=== PATIENT | female | born 1985 | race Caucasian/White ===

== ENCOUNTER 2020-06-26 13:36 | Outpatient (REF) | payer OTHER, SELFPAY ==
[2020-06-26 13:56] LABS: COVID-19 Test Negative (Negative)
== END 2020-06-26 13:37 | disposition home or self-care (01) ==
LOC: HO.EMPCOV 13:36
PROVIDERS: Visit Provider Internal Medicine
DX: Z20.828 Contact with and (suspected) exposure to other viral communicable diseases (principal)
CPT/HCPCS: 36415; 87635; C9803

== ENCOUNTER 2023-05-02 13:17 | Emergency (ER) | payer OTHER, SELFPAY ==
--- NOTE | ~2023-05-02 | XR_ITS ---
EXAMINATION: LEFT HUMERUS 2 VIEWS LEFT WRIST 4 VIEWS CLINICAL INFORMATION: Fall. Pain. COMPARISON: None. TECHNIQUE: 2 views of the left humerus. 4 views of the left wrist. FINDINGS: Left humerus: No fracture. Limited evaluation of the shoulder and elbow unremarkable. Included left chest clear. Left wrist: Alignment is anatomic. No discrete fracture. Scaphoid view appears normal with no visible scaphoid fracture. No significant degenerative changes. XR/XR wrist LT min 3V IMPRESSION: No fracture.
--- NOTE | ~2023-05-02 | XR_ITS ---
EXAMINATION: LEFT HUMERUS 2 VIEWS LEFT WRIST 4 VIEWS CLINICAL INFORMATION: Fall. Pain. COMPARISON: None. TECHNIQUE: 2 views of the left humerus. 4 views of the left wrist. FINDINGS: Left humerus: No fracture. Limited evaluation of the shoulder and elbow unremarkable. Included left chest clear. Left wrist: Alignment is anatomic. No discrete fracture. Scaphoid view appears normal with no visible scaphoid fracture. No significant degenerative changes. XR/XR humerus LT IMPRESSION: No fracture.
--- NOTE | 2023-05-02 13:20 | ED_ITS ---
HPI - General Adult General Chief complaint: Extremity Injury, Upper Stated complaint: Fall today injury left arm Time Seen by Provider: 05/02/23 14:09 Source: patient Mode of arrival: ambulatory Limitations: no limitations History of Present Illness HPI narrative: patient is a 38-year-old female who presents emergency department for evaluation of traumatic left arm pain. She reports earlier this morning she was trying to pull open a drawer that was wedged closed, pulled really hard and was able to open the door but she subsequently lost her balance falling backwards on top of her dogs and I to the floor. She has pain to the mid proximal left arm with a palpable lump and bruising of. Also endorses pain to the wrist full range of motion. She is left-hand dominant. Denies numbness or tingling to the extremity. Denies pain to the shoulder or neck. She denies any head strike or loss of consciousness from the fall. Related Data Allergies Allergy/AdvReac Type Severity Reaction Status Date / Time No Known Allergies Allergy Verified 05/02/23 13:21 Review of Systems Review of Systems: Yes all other systems are reviewed and are negative FOR[facility], [facility] Past Medical History Attestation statement: The following information was validated with the patient. Source: old records reviewed Social History Social History Advance Directives: No Advance Directives Information Provided: No Physical Exam ED Vital Signs: Vital Signs - 24 hr 05/02/23 13:21 05/02/23 14:42 Temperature 98.1 F 99 F Pulse Rate 125 H 93 Respiratory Rate 18 18 Blood Pressure 148/103 H 130/93 H Pulse Oximetry 97 98 Oxygen Delivery Method Room Air Room Air BMI result Body Mass Index 24.0 Appearance: Alert.?Oriented to person, place and time. No acute distress.?Normal affect. Neck: Normal inspection.? Neck supple.?? CVS: Heart sounds normal. Normal heart rate and rhythm.? Pulses normal.?? Respiratory: No respiratory distress.? Lung sounds clear to auscultation bilaterally?? Abdomen: Soft and non-tender. Normoactive bowel sounds. Skin: Skin warm and dry.? Normal skin color.? Extremities: The left proximal arm with point tenderness, ecchymosis likely evolving hematoma to posterior arm along mid humeral region. full AROM to left wrist. 2+ radial pulse present bilaterally. Neuro: Moves all extremities spontaneously. Sensation intact bilaterally. Ambulates with normal steady gait. Course Course Course Narrative: RME performed by Mary Mills PA-C. Patient is a 38 year old assigned female at presenting to the emergency department with left upper arm pain. Imaging ordered. Patient placed back in the waiting room pending room availability and results. Medications Administered Discontinued Medications Generic Name Dose Route Start Last Admin Trade Name Parisa PRN Reason Stop Dose Admin Ketorolac Tromethamine 30 mg 05/02/23 14:28 05/02/23 14:41 Ketorolac Tromethamine 30 Mg/Ml Vial IM 05/02/23 14:29 30 mg ONCE ONE Administration Medical Decision Making Medical Decision Making MDM Narrative: Patient is a 38-year-old female who presents emergency department for evaluation of atraumatic left arm pain as per HPI. Physical exam findings as per PE section of this note. Overall she is well-appearing, Though she does seem uncomfortable particularly upon palpation. She has full AROM to the left shoulder, elbow, and wrist. The extremity is neurovascularly intact distally. XR imaging obtained of the left wrist and humerus no evidence of fracture dislocation. Symptoms most consistent with hematoma, discussed care for discharge home, conservative treatment, Chepe bandage for compression, acetaminophen/ ibuprofen, outpatient follow-up with primary care provider. Reviewed worrisome signs and symptoms that would warrant re-evaluation in the emergency department. All questions answered. Stable for discharge. Differential Diagnosis Differential Diagnoses: The differential diagnosis associated with the presentation includes ( As noted above) Independent Interpretation I performed an independent interpretation of an: Plain X-Ray ( I personally interpreted x-ray and agree with radiologist impression, no evidence fracture or dislocation) Radiology Impression Discussion of test interpretation with radiology: I have reviewed the radiologist's reading. Radiologist Impression: XR/XR humerus LT IMPRESSION: No fracture. Prescription Management I considered prescription management with: Pain Medication ( acetaminophen/ibuprofen) Discharge Plan Discharge Clinical Impression: Hematoma Patient Disposition: Home, Self-Care Instructions: Bone Bruise (ED) Additional Instructions: X-ray is normal. You can take ibuprofen 200 mg, 3 tablets (600mg) every 6-8 hours as needed for pain, in addition to Tylenol 500 mg, 2 tablets (1,000mg) every 4-6 hours as needed for pain, but not to exceed 3 doses daily (3,000mg).? Referrals: Physician,Unknown J [Primary Care Provider] - Interventions: ED Discharge Assessment Last Done: 05/02/23 15:14 Discharge Date/Time: 05/02/23 15:15
[2023-05-02 13:21] VITALS: BP 148/103; PULSE 125; RESP 18; TEMP 36.7; O2SAT 97; BMI 24.0
[2023-05-02] MEDS: Ketorolac Tromethamine 30 MG/ML VIAL IM (14:41)
[2023-05-02 14:42] VITALS: BP 130/93; PULSE 93; RESP 18; TEMP 37.2; O2SAT 98
--- NOTE | 2023-05-02 15:13 | PC.NURSE ---
Chepe wrap applied to left upper arm where patient has a hematoma, patient tolerated well.
== END 2023-05-02 15:15 | disposition home or self-care (01) ==
PROVIDERS: Emergency Provider Emergency Medicine Emergency Medical Services
DX: S50.12XA Contusion of left forearm, initial encounter (principal); W19.XXXA Unspecified fall, initial encounter; Y93.89 Activity, other specified; Y92.9 Unspecified place or not applicable; Y99.9 Unspecified external cause status
CPT/HCPCS: 73060; 73110; 96372; 99284; J1885

== ENCOUNTER 2024-03-23 13:18 | Emergency (ER) | payer OTHER, SELFPAY ==
--- NOTE | ~2024-03-23 | XR_ITS ---
EXAMINATION: XR ANKLE, RIGHT CLINICAL INFORMATION: Pain, fall. COMPARISON: None available. TECHNIQUE: AP, lateral, and mortise views of the right ankle. FINDINGS: Small osseous fragment adjacent to the medial malleolus. Equivocal minimal cortical irregularity at the base of the fourth metatarsal. Anatomic alignment of the joint spaces. No significant soft tissue abnormality. XR/XR ankle RT min 3V IMPRESSION: 1. Equivocal minimal cortical irregularity at the base of the fourth metatarsal, nondisplaced fracture cannot be excluded. Correlate for point tenderness and if indicated consider further evaluation with a radiograph of the right foot. 2. Small osseous fragment adjacent to the medial malleolus could represent an avulsion injury. Correlate for point tenderness. Electronically signed by: Kathy Wilks MD 03/23/2024 03:39 PM EDT
--- NOTE | ~2024-03-23 | XR_ITS ---
EXAMINATION: XR HIP, RIGHT CLINICAL INFORMATION: Pain, fall. COMPARISON: CT abdomen/pelvis 08/26/2016. TECHNIQUE: Two views of the right hip. FINDINGS: No fracture or malalignment. SI joints are symmetric. Pubic symphysis and pelvic rim are maintained. No significant soft tissue abnormality. XR/XR hip RT w PEL1V IMPRESSION: No acute fracture or malalignment. Electronically signed by: Kathy Wilks MD 03/23/2024 03:40 PM EDT
--- NOTE | ~2024-03-23 | XR_ITS ---
EXAMINATION: XR FOOT, RIGHT CLINICAL INFORMATION: Pain, fall. Subtle abnormality at the base of the fourth metatarsal on prior radiograph of the right ankle. COMPARISON: Radiograph right ankle earlier today. TECHNIQUE: AP, lateral, and oblique views of the right foot. FINDINGS: No acute fracture or malalignment. No significant abnormality at the base of the fourth metatarsal. Mild joint space narrowing and subcortical sclerosis of the first MTP joint. No osseous erosions. No unusual soft tissue calcifications. No significant soft tissue abnormality. XR/XR foot RT min 3V IMPRESSION: 1. No acute fracture or malalignment. 2. 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 Electronically signed by: Kathy Wilks MD 03/23/2024 05:12 PM EDT
--- NOTE | ~2024-03-23 | XR_ITS ---
EXAMINATION: XR KNEE, RIGHT CLINICAL INFORMATION: Knee pain after fall COMPARISON: None available TECHNIQUE: Four views of the right knee. FINDINGS: Small joint effusion is present. There is evidence of a prior surgical ligamentous repair. No acute fractures or dislocations are seen. Joint spaces are well maintained. No chondrocalcinosis. XR/XR knee RT 4V IMPRESSION: Small joint effusion. No evidence of an acute osseous injury. Electronically signed by: Sherman Cui MD 03/23/2024 04:59 PM EDT
[2024-03-23 13:44] VITALS: BP 141/98; PULSE 102; RESP 18; TEMP 36.4; O2SAT 100; BMI 24.1
--- NOTE | 2024-03-23 13:48 | ED_ITS ---
HPI - Extremity Injury (Lower) General Chief Complaint: Extremity Injury, Lower Stated Complaint: r knee inj Time Seen by Provider: 03/23/24 16:42 Source: patient Mode of arrival: ambulatory Limitations: no limitations History of Present Illness ED Provider: GUADALUPE MURRAY PA-C HPI Narrative: 39 year old female, 24 years s/p ACL repair, presents to the ED today for evaluation of right knee and right ankle pain s/p fall off ladder at 0500 this morning. Patient reports standing on a 10ft ladder attempting to turn off the Halloween lights when she lost her balance from approximately half way up, causing her to land wrong on her RLE. Reports immediate knee pain. Denies head strike or LOC. No thinners. Admits to concern given her history of ACL tear to right knee. Did not take any OTC pain meds COPER HAND in ED. Denies numbness/tingling/weakness of the RLE. Related Data Previous Rx's ?Medication ?Instructions ?Recorded oxycodone 5 mg tablet 5 mg PO Q8H PRN pain (scale score 03/23/24 4-6) #9 tabs Allergies Allergy/AdvReac Type Severity Reaction Status Date / Time No Known Allergies Allergy Verified 03/23/24 13:48 Review of Systems Review of Systems: Constitutional: No fever, chills, fatigue, night sweats, weight changes ENT/Mouth: No ear pain, hearing loss, nasal congestion, sinus pain, rhinorrhea, sore throat Eyes: No eye pain, swelling, redness, vision changes, discharge Cardio: No chest pain, palpitations, DICKEY, orthopnea, peripheral edema Pulm: No SOB, cough, sputum, wheezing, dyspnea, hemoptysis GI: No nausea, vomiting, hematemesis, abdominal pain, diarrhea, constipation, hematochezia, melena : No irregular bleeding, dysuria, frequency, urgency, hesitancy, hematuria, flank pain, urinary flow changes, urinary incontinence or retention MSK: No back pain, neck pain, joint pain, myalgias, +right knee pain, +right ankle pain Skin: No lesions, rashes Neuro: No weakness, numbness, paresthesias, LOC, dizziness, headache Psych: No anxiety/panic, depression, SI/HI, AH/VH All other systems reviewed and are negative. COUNT INCLUDES THE [facility] Past Medical History Attestation statement: The following information was validated with the patient. Source: old records reviewed and nursing notes reviewed Social History Social History Advance Directives: No Advance Directives Information Provided: No Do you have a plan to hurt others: No Plan Physical Exam Vital Signs: Vital Signs: Last Vital Signs Temp 97.6 F 03/23/24 13:44 Pulse 102 H 03/23/24 13:44 Resp 18 03/23/24 13:44 BP 141/98 H 03/23/24 13:44 Pulse Ox 100 03/23/24 13:44 O2 Del Method Room Air 03/23/24 13:44 BMI result Body Mass Index 24.1 Patient hypertensive to 141/98, vitals otherwise WNL General: Well appearing, in no acute distress. Skin: Warm, dry, intact. No rashes or lesions. Head: Normocephalic, atraumatic. EENT: Hearing is intact b/l. Conjunctiva clear. PERRLA. Moist mucous membranes.? Neck: Supple without LAD. FROM. Trachea midline.? Cardiac: Chest wall symmetric. RRR. No MRG. No JVD. Lungs: Normal respiratory effort without accessory muscle use. CTA bilaterally. Back: No midline spinous or paraspinal tenderness. No step off deformity. Ext: +noted swelling to right knee with healed vertical scar status post ACL repair. Diffusely tender to palpation without palpable deformity or crepitus. Positive anterior drawer test. No swelling noted to right ankle however she is tender to palpation over medial malleolus without palpable deformity or crepitus. 2+pt/dp pulse intact. ambulating with limping gait. Neuro: AOx3. Normal speech. Psych: Appropriate mood and affect. Responds appropriately to questions. Course Course Course Narrative: This is a Rapid Medical Examination (RME) performed by Boris Galindo PA-C in triage. Full HPI, ROS, assessment and treatment plan per primary provider in the Main ED. 39 yo female with history of right sided ACL reconstruction x2 in the past (@ [facility]) presents to the ER for evaluation of right knee pain after she fell off of a ladder at 530 am today when trying to fix Halloween lights. heard 2 snaps in her right knee. the ladder tipped over and she fell approximately 7ft, landing mostly on the right leg. no head strike. no chest pain, abd pain. reports some right hip and right ankle pain as well but pain mostly in the right knee. Plan: xr knee, hip and ankle Reevaluation(s) Reevaluation #1: 1800 -- x-ray right hip unremarkable. X-ray of right knee showing small joint effusion without evidence of fracture. Given history of ACL repair and laxity on examination, will treat for possible ACL injury and patient will be placed in knee immobilizer. X-ray x-ray right ankle with findings concerning for avulsion fracture of medial malleolus. Patient has point tenderness there. Will place patient in a stirrup splint for stabilization. X-ray of right foot without noted fracture. 1825 -- stirrup splint placed assisted by Sandra LEE. patient tolerated well, NV intact distally. tells me the splint is comfortable. educated on crutch use. provided with referral to ortho. Patient has remained stable throughout ED visit today. Discussed worrisome signs and symptoms and when to return to the ED. All questions answered at this time. Patient is agreeable with disposition and stable for discharge. Medications Administered Discontinued Medications Generic Name Dose Route Start Last Admin Trade Name Freq PRN Reason Stop Dose Admin Oxycodone HCl 5 mg 03/23/24 17:20 03/23/24 17:55 Oxycodone Hcl Immed Release 5 Mg Tablet PO 03/23/24 17:21 5 mg ONCE ONE Administration Medical Decision Making Medical Decision Making MDM Narrative: 39 year old female, 24 years s/p ACL repair, presents to the ED today for evaluation of right knee and right ankle pain s/p fall off ladder at 0500 this morning. Patient hypertensive and tachy likely secondary to pain/discomfort. She is nontoxic-appearing and in no acute distress. Sitting in wheelchair. On my exam, noted swelling to right knee with healed vertical scar status post ACL repair. Diffusely tender to palpation without palpable deformity or crepitus. Positive anterior drawer test. No swelling noted to right ankle however she is tender to palpation over medial malleolus without palpable deformity or crepitus. 2+pt/dp pulse intact. ambulating with limping gait. Differential diagnosis includes contusion, MSK sprain/strain, fracture, dislocation. Unlikely neurovascular compromise, threat to limb, compartment syndrome. Plan for xrs, pain control, and re-evaluation. Differential Diagnosis Differential Diagnoses: The differential diagnosis associated with the presentation includes as above. Admission/Observation not indicated Independent Interpretation I performed an independent interpretation of an: Plain X-Ray Interpretation: X-ray hip without acute fracture, agree with radiologist's interpretation. X-ray right foot without acute fracture, agree with radiologist's i nterpretation. X-ray right ankle with question avulsion fracture of medial malleolus, agree with radiologist's interpretation. X-ray right knee with small joint effusion, no fracture, agree with rad iologist's interpretation. Radiology Impression Discussion of test interpretation with radiology: I have reviewed the radiologist's reading. Radiologist Impression: EXAMINATION: XR FOOT, RIGHT CLINICAL INFORMATION: Pain, fall. Subtle abnormality at the base of the fourth metatarsal on prior radiograph of the right ankle. COMPARISON: Radiograph right ankle earlier today. TECHNIQUE: AP, lateral, and oblique views of the right foot. FINDINGS: No acute fracture or malalignment. No significant abnormality at the base of the fourth metatarsal. Mild joint space narrowing and subcortical sclerosis of the first MTP joint. No osseous erosions. No unusual soft tissue calcifications. No significant soft tissue abnormality. XR/XR foot RT min 3V IMPRESSION: 1. No acute fracture or malalignment. 2. 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 Electronically signed by: Kathy Wilks MD 03/23/2024 05:12 PM EDT EXAMINATION: XR ANKLE, RIGHT CLINICAL INFORMATION: Pain, fall. COMPARISON: None available. TECHNIQUE: AP, lateral, and mortise views of the right ankle. FINDINGS: Small osseous fragment adjacent to the medial malleolus. Equivocal minimal cortical irregularity at the base of the fourth metatarsal. Anatomic alignment of the joint spaces. No significant soft tissue abnormality. XR/XR ankle RT min 3V IMPRESSION: 1. Equivocal minimal cortical irregularity at the base of the fourth metatarsal, nondisplaced fracture cannot be excluded. Correlate for point tenderness and if indicated consider further evaluation with a radiograph of the right foot. 2. Small osseous fragment adjacent to the medial malleolus could represent an avulsion injury. Correlate for point tenderness. Electronically signed by: Kathy Wilks MD 03/23/2024 03:39 PM EDT RP EXAMINATION: XR KNEE, RIGHT CLINICAL INFORMATION: Knee pain after fall COMPARISON: None available TECHNIQUE: Four views of the right knee. FINDINGS: Small joint effusion is present. There is evidence of a prior surgical ligamentous repair. No acute fractures or dislocations are seen. Joint spaces are well maintained. No chondrocalcinosis. XR/XR knee RT 4V IMPRESSION: Small joint effusion. No evidence of an acute osseous injury. Electronically signed by: Sherman Cui MD 03/23/2024 04:59 PM EDT RP EXAMINATION: XR HIP, RIGHT CLINICAL INFORMATION: Pain, fall. COMPARISON: CT abdomen/pelvis 08/26/2016. TECHNIQUE: Two views of the right hip. FINDINGS: No fracture or malalignment. SI joints are symmetric. Pubic symphysis and pelvic rim are maintained. No significant soft tissue abnormality. XR/XR hip RT w PEL1V IMPRESSION: No acute fracture or malalignment. Electronically signed by: Kathy Wilks MD 03/23/2024 03:40 PM EDT RP External Record Review External record reviewed: Inpatient record Prescription Management I considered prescription management with: Pain Medication (Oxycodone) Social Determinants Patient?s care significantly limited by Social Determinants of Health including: Other Social Determinant of Health Procedures Orthopedic Splinting/Casting Injury #1: Side: right Lower Extremity Injury Location: ankle Lower Extremity Immobilizer: stirrup splint Other Orthopedic Equipment: crutches Injury #2: Side: left Lower Extremity Injury Location: knee Lower Extremity Immobilizer: knee immobilizer Other Orthopedic Equipment: crutches Critical Care Time Critical Care Time Critical Care Time: No Discharge Plan Discharge Clinical Impression: Avulsion fracture of medial malleolus, Accidental fall from ladder, Right knee sprain Patient Disposition: Home, Self-Care Instructions: Ankle Fracture (ED), Knee Sprain (ED), Crutch Instructions (ED), Knee Immobilizer (ED) Additional Instructions: You have been evaluated in the Emergency Department today following fall off ladder. Your evaluation showed a fracture of your ankle. I have placed your ankle in a splint today. Avoid getting the splint wet. Please rest, ice, and elevate your ankle. As discussed, although the xray of your right knee did not show fracture, you likely have a ligament vs tendon injury which needs to be further evaluated by ortho. You were placed in a knee immobilizer to help with immobilization. Keep this on until follow up with ortho. You may remove it to shower/ bathe. We have provided crutches for you to use while your ankle and knee heel. I recommend you take 600mg ibuprofen every 6 hours or tylenol 650mg every 6 hours as needed for pain. If needed, you can alternate these medications so that you take one medication every 3 hours. For example, at noon take ibuprofen, then at 3pm take tylenol, then at 6pm take ibuprofen.? Please take Oxycodone as directed as necessary for breakthrough pain. Please follow-up with an orthopedic surgeon in 1 week. You have been provided with a referral. Call them to make an appointment, they will not call you. Return to the Emergency Department if you experience worsening pain, numbness, tingling, change of color in your toes, or any other concerning symptoms. Prescriptions: New oxycodone 5 mg tablet 5 mg PO Q8H PRN (Reason: pain (scale score 4-6)) Qty: 9 0RF Rx Instructions: Partial Fill upon patient request. Referrals: [facility] [place] Orthopedic Surgeons [Provider Group] Print Language: Luxembourgish
[2024-03-23] MEDS: oxyCODONE HCl Immed Release 5 MG TABLET PO (17:55)
[2024-03-23 19:02] VITALS: BP 141/98; PULSE 102; RESP 18; TEMP 36.4; O2SAT 100
== END 2024-03-23 19:03 | disposition home or self-care (01) ==
PROVIDERS: Emergency Provider Emergency Medicine
DX: S82.51XA Displaced fracture of medial malleolus of right tibia, initial encounter for closed fracture (principal); S83.91XA Sprain of unspecified site of right knee, initial encounter; M25.571 Pain in right ankle and joints of right foot; R10.2 Pelvic and perineal pain; M25.551 Pain in right hip; W11.XXXA Fall on and from ladder, initial encounter; Y93.89 Activity, other specified; Y92.89 Other specified places as the place of occurrence of the external cause; Y99.8 Other external cause status
CPT/HCPCS: 73502; 73564; 73610; 73630; 99283

== ENCOUNTER 2024-07-27 13:18 | Outpatient (AMB) | payer OTHER, SELFPAY ==
--- OUTSIDE RECORDS SUMMARY | 2024-07-27 13:23 | XMS_ITS | Referral Summary ---
Author Organization [facility] Address [address] [place] [address] Care Team Providers Care Corporate Compliance Manager Name Role Phone Patient, Has No Pcp Or Ref Primary Care Provider Unavailable Social History Tobacco Use Types Packs/Day Years Used Date Smoking Tobacco: Never Assessed Comments Unknown Sex and Gender Information Value Date Recorded Sex Assigned at Female 04/06/2024 4:59 PM EDT Legal Sex Female 4:26 AM EDT Gender Identity Not on file Sexual Orientation Not on file Plan of Treatment Not on file Insurance [employer] Care Teams Corporate Compliance Manager Relationship Specialty Start Date End Date Patient, Has No Pcp Or Ref DO NOT EDIT THIS RECORD VIA PROVIDER ON THE FLY PCP - General Business Management Intern 04/06/24
--- OUTSIDE RECORDS SUMMARY | 2024-07-27 13:23 | XMS_ITS | Clinical Summary ---
Author Organization [facility] Address [address] [place] [address] Care Team Providers Care Cleaning And Maintenance Worker Name Role Phone Patient, Has No Pcp Or Ref Primary Care Provider Unavailable Social History Tobacco Use Types Packs/Day Years Used Date Smoking Tobacco: Never Assessed Comments Unknown Sex and Gender Information Value Date Recorded Sex Assigned at Female 04/06/2024 4:59 PM EDT Legal Sex Female 4:26 AM EDT Gender Identity Not on file Sexual Orientation Not on file Plan of Treatment Health Maintenance Due Date Last Done Comments Cervical Cancer Screening 1983 HIV Screening 1983 HPV and Pap Smear 1983 Pap Smear 1983 Varicella Vaccines (1 of 2 - 13+ 2-dose series) 02/23/1996 Hepatitis B Vaccines (1 of 3 - 19+ 3-dose series) 2002 DTaP,Tdap,and Td Vaccines (1 - Tdap) 2005 Mammogram 2023 COVID-19 Vaccine ( - 2023-2 5 season) 2024 Influenza Vaccine (#1) 2024 Alcohol/Substance Use Screening 06/21/2024 RSV Vaccine (60+ years old a nd patients) (1 - 1-dose 75+ series) 2058 Pneumococcal Vaccine: Pediat winsome (0-5 Years) and At-Risk Patients (6-64 Years) Aged Out No longer eligible b ased on patient's age to complete this topic Insurance [employer] Care Teams Cleaning And Maintenance Worker Relationship Specialty Start Date End Date Patient, Has No Pcp Or Ref DO NOT EDIT THIS RECORD VIA PROVIDER ON THE FLY PCP - General Senior Business Process Analyst 04/06/24
--- NOTE | 2024-07-27 13:27 | A.OFFVIS_ITS ---
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 Patient presented to [facility] after falling off a ladder at home. Patient has a known history of right ACL repair, DOS:01/2000. 2 years later had surgery again for removal of hardware. 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 She states she was on a ladder and it was about to fall when she jumped from the ladder and as she landed on her feet the right knee buckled and she felt it give way and fell. She was seen at another orthopedic practice where an MRI was ordered and she was found to have a re-tear of her ACL along with an MCL sprain and a meniscus tear. She was tentatively booked for surgery which later got canceled. She is an employee of [employer] and presented to our office for ortho eval right knee. She states she is significantly active and this injury is limiting her ability to perform daily activities and also activities that require impact or jumping/cutting twisting or pivoting. [facility] Surgical History (Updated 07/27/24 @ 14:32 by Kermit Garcia PA-C) S/P reconstruction of ACL of right knee using bone-patellar tendon-bone autograft Social History (Updated 07/27/24 @ 14:32 by Kermit Garcia PA-C) Current occupation: [employer] Review of Systems Const All systems reviewed & are unremarkable except as noted in HPI and below Physical Exam Const General: cooperative and no acute distress Orientation/consciousness: patient oriented x3 Resp Effort & Inspection: normal respiratory effort and able to speak in complete sentences Cardio Peripheral pulses: Peripheral pulses 2+ throughout Neuro General: patient oriented x3 Extrem Other: Right knee normal to inspection surgical scar present no open wounds or abrasions no joint effusion present she has full range of motion. Tenderness along the medial joint line with a positive Bautista's. Significant ligamentous laxity with anterior drawer testing when compared to contralateral side. Neurovascularly intact. Results Reviewed Results Reviewed: XR knee RT 4V IMPRESSION: Small joint effusion. No evidence of an acute osseous injury. Assessment & Plan Assessment & Plan (1) New tear of anterior cruciate ligament of right knee: Code(s): S83.511A - Sprain of anterior cruciate ligament of right knee, initial encounter Category: Medical Plan: Dr. Salas was available to see the patient with me today. We discussed the injury at length along with treatment options which include ACL reconstruction with allograft versus autograft. We discussed at length the benefits of allograft versus autograft given her age and activity level. Since she continues to have significant limitations with activities and would like to get back to normal function we did decide to proceed with revision ACL reconstruction right knee with allograft. A stat MRI will be ordered of the right knee to further assess the nature of the ACL and surrounding structures. We discussed the risks benefits and alternatives to the procedure. Risks including but not limited to infection, blood clots, nerve tissue damage to surrounding area, injury to bone, retear of ACL graft, stiffness and pain. She does understand all this and would like to proceed with revision right knee ACL reconstruction with allograft with Dr. Salas. She was fit for a hinged knee brace in the office today. Orders: Orders MR knee RT wo con Today S83.511A - Sprain of anterior cruciate ligament of right knee, initial encounter Coding Level of Care Code New Pt Level 4 (92914) Complex EM visit Add On G2211 Diagnoses New tear of anterior cruciate ligament of right knee S83.511A
== END 2024-07-27 14:39 | disposition home or self-care (01) ==
PROVIDERS: Visit Provider Physician Assistant
DX: S83.511A Sprain of anterior cruciate ligament of right knee, initial encounter (principal)
CPT/HCPCS: 99204

== ENCOUNTER 2024-07-31 19:55 | Outpatient (REF) | payer OTHER, SELFPAY | END 2024-07-31 19:56 | disposition home or self-care (01) | LOC: HO.MRI 19:55 | PROVIDERS: Visit Provider Physician Assistant | DX: S83.511A Sprain of anterior cruciate ligament of right knee, initial encounter (principal) | CPT/HCPCS: 73721 ==

== ENCOUNTER → 2024-07-31 20:04 | Outpatient (BNV) | payer OTHER, SELFPAY | PROVIDERS: Visit Provider Radiology Diagnostic Radiology | DX: S83.511A Sprain of anterior cruciate ligament of right knee, initial encounter (principal) | CPT/HCPCS: 73721 ==

== ENCOUNTER 2024-08-02 12:34 | Day surgery (SDC) | payer OTHER, SELFPAY ==
--- NOTE | 2024-08-01 12:10 | P.CONAN_ITS ---
Documented by User: Lena Almendarez NP 08/01/24 12:10 HPI - Anesthesia Eval Consult details Narrative: 39yo F for Right ACL Repair Arthroscopic Revision with Allograft PMFSH Active Problems Active Problems: All Active Problems New tear of anterior cruciate ligament of right knee (Acute) Surgical History Surgical History S/P reconstruction of ACL of right knee using bone-patellar tendon-bone autograft Social History Social History Are you a primary personal care worker to a significant other at home: No Do you presently have visiting nurse or other home services: No Patient Tobacco Use Status: Current everyday Tobacco user Tobacco use type: Cigarette Cigarettes Per Day: 5 Use of substances other than those prescribed or required for medical reasons: No Have you been hit, kicked, punched, or otherwise hurt by someone within the past year? If so, by whom?: No Are you DNR?: No Advance Directives: No Advance Directives Information Provided: Yes Recently lost weight without trying: No Nutrition Risks: No Nutritional Risk Patient : No FDLMP: 07/08/2024 Current occupation: [employer] Allergies Allergy/AdvReac Type Severity Reaction Status Date / Time No Known Allergies Allergy Verified 07/27/24 13:35 Assessment and Plan Assessment Anesthesia Assessment: Chart Reviewed Documented by User: Maria M Mondragon MD 08/02/24 13:22 PMFSH Family History Family history of problems with anesthesia: No Surgical History Surgical History S/P reconstruction of ACL of right knee using bone-patellar tendon-bone autograft History of Problems with Anesthesia: No Social History Social History Are you a primary personal care worker to a significant other at home: No Do you presently have visiting nurse or other home services: No Patient Tobacco Use Status: Current everyday Tobacco user Tobacco use type: Cigarette Cigarettes Per Day: 5 Use of substances other than those prescribed or required for medical reasons: No Have you been hit, kicked, punched, or otherwise hurt by someone within the past year? If so, by whom?: No Are you DNR?: No Advance Directives: No Advance Directives Information Provided: Yes Recently lost weight without trying: No Nutrition Risks: No Nutritional Risk Patient : No FDLMP: 07/08/2024 Current occupation: [employer] Allergies Allergy/AdvReac Type Severity Reaction Status Date / Time No Known Allergies Allergy Verified 07/27/24 13:35 Exam Airway Mallampati Class: II TM Dist: >3cm Neck ROM: Full Heart: rrr Lungs: cta Assessment and Plan Assessment Anesthesia Assessment: Anesthesia Plan Discussed Final Anesthetic Review Family History of Problems with Anesthesia: No History of Problems with Anesthesia: No NPO: Yes ASA Class: II (smoker) Final Preanesthetic Review: No Changes in Pt Med Stat, Meds/Allgs Chart Reviewed, Consent Obtained/Reviewed and Anes Risks/Benef Reviewed Patient Risk: Low Procedure Risk: Intermediate Anesthetic Plan Anesthetic Plan: GA and Regional Block Disposition: Standard PACU
[2024-08-02] VITALS (7 sets, daily range): BP systolic 117–133; BP diastolic 70–95; PULSE 82–97; RESP 14–18; TEMP 36.5–36.8; O2SAT 99–100; BMI 24.0
[2024-08-02 13:19] LABS: UPreg QC Valid YES; Urine Pregnancy NEGATIVE (NEGATIVE)
[2024-08-02] MEDS: Lactated Ringers 1,000 ML 100 ML IVCONT (13:31)
--- NOTE | 2024-08-02 13:36 | HO.ANESPROP2 ---
[facility] Active Problems Active Problems: All Active Problems (Updated 07/27/24 @ 14:20 by Kermit Garcia PA-C) New tear of anterior cruciate ligament of right knee (Acute) Family History Family history of problems with anesthesia: No Surgical History Surgical History S/P reconstruction of ACL of right knee using bone-patellar tendon-bone autograft History of Problems with Anesthesia: No Social History Social History Are you a primary home health care social worker to a significant other at home: No Do you presently have visiting nurse or other home services: No Patient Tobacco Use Status: Current everyday Tobacco user Tobacco use type: Cigarette Cigarettes Per Day: 5 Use of substances other than those prescribed or required for medical reasons: No Have you been hit, kicked, punched, or otherwise hurt by someone within the past year? If so, by whom?: No Are you DNR?: No Advance Directives: No Advance Directives Information Provided: Yes Recently lost weight without trying: No Nutrition Risks: No Nutritional Risk Patient : No FDLMP: 07/08/2024 Current occupation: [employer] Allergies Allergy/AdvReac Type Severity Reaction Status Date / Time No Known Allergies Allergy Verified 07/27/24 13:35 Active Medications: Current Medications Fentanyl (Fentanyl Citrate/Pf 100 Mcg/2 Ml Vial) 25 mcg IVPUSH Q5M PRN PRN Reason: Pain, Moderate to Severe (Pain Scale 4-10) Stop: 08/02/24 19:22 Lactated Ringer's (Lr) 1,000 mls @ 100 mls/hr IVCONT .Q10H SAVANNAH Last Admin: 08/02/24 13:31 Dose: 100 mls/hr Naloxone HCl (Naloxone Hcl 0.4 Mg/Ml Vial) 0.04 mg IVPUSH Q5M PRN PRN Reason: Excessive sedation or RR < 8 Ondansetron HCl (Ondansetron Hcl 4 Mg/2 Ml Vial) 4 mg IVPUSH ONCE PRN PRN Reason: Nausea and Vomiting Stop: 08/02/24 19:22 Exam Height,Weight and Vital Signs: Height 5 ft 4 in Weight 63.503 kg Last Vital Signs Temp 98.3 F 08/02/24 13:16 Pulse 97 08/02/24 13:16 Resp 14 08/02/24 13:16 BP 133/95 H 08/02/24 13:16 Pulse Ox 99 08/02/24 13:16 O2 Del Method Room Air, Mechanical Ventilation 08/02/24 13:16 Pertinent Lab Results Pertinent Lab Results: Laboratory Tests 08/02/24 12:40 Urine Test NEGATIVE Airway Mallampati Class: II TM Dist: >3cm Neck ROM: Full Assessment and Plan Assessment Anesthesia Assessment: Anesthesia Plan Discussed and Chart Reviewed Final Anesthetic Review Family History of Problems with Anesthesia: No History of Problems with Anesthesia: No NPO: Yes ASA Class: II Final Preanesthetic Review: No Changes in Pt Med Stat, Meds/Allgs Chart Reviewed, Consent Obtained/Reviewed, Anes Risks/Benef Reviewed and DNR Form (If Appl.) Patient Risk: Low Procedure Risk: Low Anesthetic Plan Anesthetic Plan: GA Disposition: Standard PACU
--- OUTSIDE RECORDS SUMMARY | 2024-08-02 14:01 | XMS_ITS | Clinical Summary ---
Author Organization [facility] Address [address] [place] [address] Care Team Providers Care Dandy Tender Name Role Phone Patient, Has No Pcp [...] complete this topic Insurance [employer] [place] [employer] Care Teams Dandy Tender Relationship Specialty Start Date End Date Patient, Has No Pcp Or Ref DO NOT EDIT THIS RECORD VIA PROVIDER ON THE FLY PCP - General Cooking Chef 04/06/24
--- OUTSIDE RECORDS SUMMARY | 2024-08-02 14:01 | XMS_ITS | Referral Summary ---
Author Organization [facility] Address [address] [place] [address] Care Team Providers Care Platform Beater Name Role Phone Patient, Has No Pcp [...] Plan of Treatment Not on file Insurance [employer] ADMINISTRATORS Care Teams Platform Beater Relationship Specialty Start Date End Date Patient, Has No Pcp Or Ref DO NOT EDIT THIS RECORD VIA PROVIDER ON THE FLY PCP - General Licensed And Certified Midwife 04/06/24
--- NOTE | 2024-08-02 14:41 | MHC.SHP ---
Pre-Procedural Eval Section A - 24 Hr Update-Section A only Date of Service: 08/02/24 The patient is an INPATIENT: No Changes since office visit: No Cold of Flu in the past 2 weeks, No New Medical Problems, No Changes in Medication and No Patient answered all questions The patient has been examined within 24 hours of the surgical procedure. The History & Physical has been completed within 30 days and I have reviewed it.: Yes Section B - Complete if H&P > 30 days Chief Complaint: Sprain of anterior cruciate ligament of right knee Allergies: Allergies Allergy/AdvReac Type Severity Reaction Status Date / Time No Known Allergies Allergy Verified 07/27/24 13:35 Plan I have reviewed the history and physical and performed a pertinent physical examination on my patient. No changes have occurred unless specified. Time Spent With Patient Time: Total time managing care of this patient today ____ minutes.
--- NOTE | 2024-08-02 16:51 | P.BOP_ITS ---
Brief Operative Note Date of Service: 08/02/24 Pre-op diagnosis: Right ACL tear and MMT Post-op diagnosis: other (1) Right ACL tear 2) RIght MMT 3) Right lateral root tear) Procedure: Right ACL reconstruction with allograft Right Medial meniscus tear RIght Lateral root repair Implants: Mcfarland and Nephew ACL endobutton and 11x 25 IF screw Footprint mini x 1 RTI Anterior tibialis allograft Surgeon: Abhishek Salas MD Anesthesia: GLMA and regional Was an Knife Machine Operator used for this Procedure?: Yes Knife Machine Operator: Mandy Foster Estimated blood loss (mL): 25 Tourniquet time (min): 90 IV fluids (mL): 1,200 Pathology: none sent Condition: stable Disposition: PACU
--- NOTE | 2024-08-07 08:00 | P.OP_ITS ---
Operative Note Operative Note Date of Service: 08/02/24 Narrative: Date of Service: 08/02/24 Pre-op diagnosis: Right ACL tear and MMT Post-op diagnosis: other (1) Right ACL tear 2) RIght MMT 3) Right lateral root tear) Procedure: Right ACL reconstruction with allograft Right Medial meniscus tear RIght Lateral root repair Implants: Mcfarland and Nephew ACL endobutton and 11x 25 IF screw Footprint mini x 1 RTI Anterior tibialis allograft Surgeon: Abhishek Salas MD Anesthesia: GLMA and regional Was an Temporary Data Entry Clerk used for this Procedure?: Yes Temporary Data Entry Clerk: Mandy Foster Estimated blood loss (mL): 25 Tourniquet time (min): 90 IV fluids (mL): 1,200 Pathology: none sent Condition: stable Disposition: PACU Procedure in detail: Patient was brought to the operating room placed supine on the arthroscopic table and prepped and draped in standard sterile fashion. A time-out was called to identify proper site proper procedure proper surgeon and IV antibiotics per weight were administered. Under anesthesia she had a grossly + pivot shift. I began by exsanguinating the limb and insufflating tourniquet to 300 mm Hg. Then made a standard anterolateral stab incision. The knee was insufflated with water and 30 degree arthroscope was placed. There was grade 0 fibrillations of the patella and overall suprapatellar pouch and the gutters were clean. I descended into the medial compartment where I made my far medial portal under direct visualization. There was an unstable bucket handle medial meniscus tear in the red/white zone. The root was intact and there were no cartilage changes of the MFC or medial tibial plateau. I debrided the posterior tibial plateau./ posterior horn capsular attachment sign an arthroscopic rasp. I used two Fast Pass meniscal cinches (Mcfarland and Nephew) to repair the tear through the AM portal. I was satisfied with the extent of repair. The meniscus was stable to probing. I then examined the notch where there was a + empty wall sign and an intact PCL. The stump of the ACL was prominent. I debrided the stump and acl footprint and performed a limited notchplasty. I then examined the lateral meniscus and there was a complete lateral root tear. The lateral meniscal root has scarrred to the PCL. I then palced the knee in a figure-4 position and used an arthroscopic currette to debrided the attachment site. I did not take down the scarred portion. I placed two looped fiber tape through the root and then, at a 65 deg angle ( to avoid tunnel crossover) i drilled my cannulated drill through the lateral root insertion site from the anteromedial tibial plateau. The pin was directly visualized as it penetrated the joint. I placed a nitinol wire and brought the free ends of the looped suture down through the tibia. I did not tighten yet but rather returned to the ACL reconstruction. Of note there were G2 changes of the LFC, liekly from prior surgery. I then, through a far AM portal and a 7mm behind the back guide, drilled a k-wire through the LFC with the knee in hyper-flexion. I measured the tunnel as a 26 and then after sizing the allograft on the back table (9.5) drilled a 20mm tunnel with a 10 mm reamer. The final 6 mm was drilled with a 4.5 reamer. I then pulled a suture through the femoral tunnel and turned my attention to the tibia. I did examine the femoral tunnel and was satisfied with the posterior wall and its location low and medial at the anatomic footprint. I visualized the femoral tunnel and there was bone on all sides with no evidence of prior surgery or any tunnel abnormalities. I placed my tibial drill guide in 55 deg and, through a anteromedial inc just lateral to the tibial tubercle placed a k-wire into the notch exiting just medial to the anterior horn insertion of the lateral meniscus. I then over- reamed with a 10mm reamer. I cleaned the tunnels up with a shaver. Again the tunnel was examined and there was bone on all sides with no irregularities or widening. On the back table I whip-stitched the allograft to fit through a 9.5/10 aperture and attached the femoral button to the looped end. I placed the graft on 15lbs of tension for 15 minutes. I then passed the allograft through the tibial tunnel and femoral tunnel and flipped the button. I cycled the knee about 10-15 cycles and then placed a tibial interference screw (11x24) with the knee in hyper-extension while holding the graft taught. Once I was satisfied that the interference screw was buried I examined the ACL and the medial meniscus repair. The repair was stable and the ACL was not impinging and there was a negative pivot shift. I then placed the knee in figure of 4 and tightened the suture exiting the tibia. There was excellent compression of the root to the insertion. I tightened this is 45 deg of flexion and placed a single Mcfarland and Nephew Footprint through the anteromedial tibia distal to the ACL interference screw. Once this was placed I examined the lateral root repair, the medial meniscus repair and the ACL. I was satisfied that they were all stable and all hardware intact. I then removed all instrumentation and closed the incisions with nylon. Patient was then placed in sterile dressings and a hinged knee brace. She was then extubated brought recovery room stable condition. There were no known complications. ACL/root PT protocol.
== END 2024-08-02 17:47 | disposition home or self-care (01) ==
LOC: HO.SSS 12:34
PROVIDERS: Nurse Practitioner; Visit Provider Orthopaedic Surgery
PROC: (CPT 29888; principal; 2024-08-02 15:30)
DX: S83.511A Sprain of anterior cruciate ligament of right knee, initial encounter (principal); S83.211A Bucket-handle tear of medial meniscus, current injury, right knee, initial encounter; S83.281A Other tear of lateral meniscus, current injury, right knee, initial encounter; W11.XXXA Fall on and from ladder, initial encounter; Y93.9 Activity, unspecified; Y92.9 Unspecified place or not applicable; Y99.9 Unspecified external cause status; Z98.890 Other specified postprocedural states
CPT/HCPCS: 29888; 29883; 81025; C1713; C1762; J0131; J0171; J0665; J0690; J1100; J1885; J2003; J2250; J2405; J2704; J3010

== ENCOUNTER → 2024-08-02 12:34 | Outpatient (BNV) | payer OTHER, SELFPAY | PROVIDERS: Visit Provider Orthopaedic Surgery | DX: S83.211A Bucket-handle tear of medial meniscus, current injury, right knee, initial encounter (principal); S83.281A Other tear of lateral meniscus, current injury, right knee, initial encounter; S83.511A Sprain of anterior cruciate ligament of right knee, initial encounter | CPT/HCPCS: 29881; 29882; 29888 ==

== ENCOUNTER 2024-08-10 10:39 | Outpatient (REF) | payer OTHER, SELFPAY ==
--- OUTSIDE RECORDS SUMMARY | 2024-08-11 11:42 | XMS_ITS | Referral Summary ---
Author Organization [facility] Address [address] [place] [address] Care Team Providers Care Oracle Dba Name Role Phone Patient, Has No Pcp [...] Plan of Treatment Not on file Insurance [employer] ADMINISTRATORS Care Teams Oracle Dba Relationship Specialty Start Date End Date Patient, Has No Pcp Or Ref DO NOT EDIT THIS RECORD VIA PROVIDER ON THE FLY PCP - General Concreter 04/06/24
--- OUTSIDE RECORDS SUMMARY | 2024-08-11 11:42 | XMS_ITS | Clinical Summary ---
Author Organization [facility] Address [address] [place] [address] Care Team Providers Care Rendering Equipment Tender Name Role Phone Patient, Has No [...] Pediat winsome (0-5 Years) and At-Risk Patients (6-50 Years) Aged Out No longer eligible b ased on patient's age to complete this topic Insurance [employer] [place] [employer] Care Teams Rendering Equipment Tender Relationship Specialty Start Date End Date Patient, Has No Pcp Or Ref DO NOT EDIT THIS RECORD VIA PROVIDER ON THE FLY PCP - General Yarn Washer 04/06/24
== END 2024-08-10 10:40 | disposition home or self-care (01) ==
LOC: HO.HOSX 10:39
PROVIDERS: Visit Provider Physician Assistant
DX: Z13.89 Encounter for screening for other disorder (principal)

== ENCOUNTER 2024-08-14 08:14 | Outpatient (REF) | payer OTHER, SELFPAY ==
--- OUTSIDE RECORDS SUMMARY | 2024-08-14 11:39 | XMS_ITS | Clinical Summary ---
Author Organization [facility] Address [address] [place] [address] Care Team Providers Care Boat Laborer Name Role Phone Patient, Has No Pcp [...] DTaP,Tdap,and Td Vaccines (1 - Tdap) 2005 COVID-19 Vaccine ( - 2023-2 5 season) 2024 Influenza Vaccine (#1) 2024 Alcohol/Substance Use Screening 06/21/2024 RSV Vaccine (60+ years old a nd patients) (1 - 1-dose 75+ series) 2058 Pneumococcal Vaccine: Pediat winsome (0-5 Years) and At-Risk Patients (6-50 Years) Aged Out No longer eligible b ased on patient's age to complete this topic Insurance [employer] Care Teams Boat Laborer Relationship Specialty Start Date End Date Patient, Has No Pcp Or Ref DO NOT EDIT THIS RECORD VIA PROVIDER ON THE FLY PCP - General Water Mangle Tender 04/06/24
--- OUTSIDE RECORDS SUMMARY | 2024-08-14 11:39 | XMS_ITS | Referral Summary ---
Author Organization [facility] Address [address] [place] [address] Care Team Providers Care Swine Extension Field Specialist Name Role Phone Patient, Has No Pcp [...] Plan of Treatment Not on file Insurance Screen ADMINISTRATORS Screen ADMINISTRATORS Care Teams Swine Extension Field Specialist Relationship Specialty Start Date End Date Patient, Has No Pcp Or Ref DO NOT EDIT THIS RECORD VIA PROVIDER ON THE FLY PCP - General Airplane Refueler 04/06/24
== END 2024-08-14 08:15 | disposition home or self-care (01) ==
LOC: HO.HOSX 08:14
PROVIDERS: Visit Provider Physician Assistant
DX: Z13.89 Encounter for screening for other disorder (principal)

== ENCOUNTER 2024-08-14 14:14 | Outpatient (AMB) | payer OTHER, SELFPAY ==
--- NOTE | 2024-08-14 14:22 | MHC.OFFVIS ---
Intake Visit Reasons: PO RT knee ACL repair 08/02/24 NE Intake Note: Flora is a 39 year old female who presents today for a post op appointment s/p right knee ACL repair 08/02/24 NE. Patient reports she is feeling very sore around the incision site. Allergies No Known Allergies Allergy (Verified 08/14/24 14:30) HPI HPI PO RT knee ACL repair 08/02/24 NE: Details: Ms. Alamo is a 39-year-old female who presents to the office today for her 1st postop status post right knee ACL reconstruction with meniscal root repair performed on 08/02/[address] Salas. She has had difficulty using the crutches and is concerned for falling. Additionally, she is using a cryocuff for ice therapy. Unfortunately, the patient did become ill with the flu and missed her 1st physical therapy appointment and did have to reschedule her 1st postop appointment. However, this has not impacted her recovery at this time and she is overall doing very well. [facility] Surgical History S/P reconstruction of ACL of right knee using bone-patellar tendon-bone autograft Social History Are you a primary field care coordinator to a significant other at home: No Do you presently have visiting nurse or other home services: No Patient Tobacco Use Status: Current everyday Tobacco user Tobacco use type: Cigarette Cigarettes Per Day: 5 Current occupation: [employer] Review of Systems Const All systems reviewed & are unremarkable except as noted in HPI and below Physical Exam Const General: cooperative, healthy appearing and no acute distress Resp Effort & Inspection: normal respiratory effort and able to speak in complete sentences Cardio Rate: regular rate Peripheral pulses: Peripheral pulses 2+ throughout Skin Lesions: no lesions Rashes: no rashes Extrem Other: Right knee incision sites are clean dry and intact. Sutures intact. There is diffuse ecchymosis. No surrounding erythema or drainage. No signs of infection. Able to dorsiflex plantar flex. NVI. Assessment & Plan Assessment & Plan (1) S/P repair of lateral meniscus root tear of right knee: Code(s): Z98.890 - Other specified postprocedural states; Z87.828 - Personal history of other (healed) physical injury and trauma Category: Surgical (2) S/P ACL reconstruction: Code(s): Z98.890 - Other specified postprocedural states Category: Surgical Plan Ms. Alamo is a 39-year-old female who presents to the office today for her 1st postop status post right knee ACL reconstruction with meniscal root repair performed on 08/02/[address] Salas. She has had difficulty using the crutches and is concerned for falling. Additionally, she is using a cryocuff for ice therapy. Unfortunately, the patient did become ill with the flu and missed her 1st physical therapy appointment and did have to reschedule her 1st postop appointment. However, this has not impacted her recovery at this time and she is overall doing very well. While in the office today, Dr. Salas was available to see the patient with me. Her sutures removed and Steri-Strips were applied. She was placed back into the brace. Physical therapy protocol was also provided to the patient. She may perform 25% weight-bearing at this time. It is important that she does not bend past 90 degrees for the integrity of the repair. She demonstrates understanding with this. Additionally, because she is unable to ambulate with the use of crutches I have sent a prescription for a walker to [facility] and also provided the patient with a paper copy to obtain if need be. She did miss her initial evaluation due to having the flu with physical therapy and therefore we will contact the physical therapy office to attempt to have the patient be seen this week for physical therapy services. The patient was placed back into the ACL brace. She will follow up with Dr. Salas in 4 weeks, sooner if needed. Medications: New walker Folding front wheeled walker Crutches too difficult to ambulate 1 ea 0RF Lt knee s/p ACL and meniscal root repair Z87.828 - Personal history of other (healed) physical injury and trauma, Z98.890 - Other specified postprocedural states Coding Level of Care Code Global (83913) Diagnoses S/P repair of lateral meniscus root tear of right knee Z98.890; Z87.828 S/P ACL reconstruction Z98.890
--- OUTSIDE RECORDS SUMMARY | 2024-08-14 16:21 | XMS_ITS | Referral Summary ---
Author Organization [facility] Address [address] [place] [address] Care Team Providers Care Experimental Technician Name Role Phone Patient, Has No Pcp [...] Plan of Treatment Not on file Insurance [employer] Care Teams Experimental Technician Relationship Specialty Start Date End Date Patient, Has No Pcp Or Ref DO NOT EDIT THIS RECORD VIA PROVIDER ON THE FLY PCP - General Admeasurer 04/06/24
--- OUTSIDE RECORDS SUMMARY | 2024-08-14 16:21 | XMS_ITS | Clinical Summary ---
Author Organization [facility] Address [address] [place] [address] Care Team Providers Care Geospatial Imagery Intelligence Analyst Name Role Phone Patient, Has No Pcp [...] complete this topic Insurance [employer] [place] [employer] Care Teams Geospatial Imagery Intelligence Analyst Relationship Specialty Start Date End Date Patient, Has No Pcp Or Ref DO NOT EDIT THIS RECORD VIA PROVIDER ON THE FLY PCP - General Hand Cutter Apprentice 04/06/24
== END 2024-08-14 15:15 | disposition home or self-care (01) ==
PROVIDERS: Visit Provider Physician Assistant
DX: Z98.890 Other specified postprocedural states (principal); Z87.828 Personal history of other (healed) physical injury and trauma
CPT/HCPCS: 99024

== ENCOUNTER 2024-09-11 14:32 | Outpatient (AMB) | payer OTHER, SELFPAY ==
[2024-09-11 14:35] VITALS: BMI 24.0
--- NOTE | 2024-09-11 14:35 | MHC.OFFVIS ---
Vital Signs 09/11/24 14:35 Height 5 ft 4 in Weight 140 lb BMI 24.0 Intake Visit Reasons: PO RT knee ACL repair 08/02/24 NE Intake Note: Flora is a 39 year old female who presents today for a post op appointment about 6 weeks s/p right knee ACL repair 08/02/24 NE. Pt states she is attending PT two times a week. She states she is having pain that comes and goes. Allergies No Known Allergies Allergy (Verified 09/11/24 14:35) HPI HPI PO RT knee ACL repair 08/02/24 NE: Details: Flora is a 39 year old female who presents today for a post op appointment about 6 weeks s/p right knee ACL repair 08/02/24 NE. Pt states she is attending PT two times a week. She states she is having pain that comes and goes. [facility] Surgical History S/P reconstruction of ACL of right knee using bone-patellar tendon-bone autograft Social History Are you a primary home care consultant to a significant other at home: No Do you presently have visiting nurse or other home services: No Patient Tobacco Use Status: Current everyday Tobacco user Tobacco use type: Cigarette Cigarettes Per Day: 5 Current occupation: [employer] Physical Exam Vital Signs: BMI result Body Mass Index 24.0 Extrem Other: Incisions clean dry and intact 0-90 Stable Becky's Assessment & Plan Assessment & Plan (1) S/P ACL reconstruction: Code(s): Z98.890 - Other specified postprocedural states Category: Surgical Plan: Doing well considering the extent of surgery. Continue weight-bearing and range of motion as per protocol. She may return to sedentary work in 2 weeks. Follow up 6 weeks (2) Acute medial meniscus tear of right knee: Code(s): S83.241A - Other tear of medial meniscus, current injury, right knee, initial encounter Category: Medical Plan: Doing well. Continue per protocol (3) S/P repair of lateral meniscus root tear of right knee: Code(s): Z98.890 - Other specified postprocedural states; Z87.828 - Personal history of other (healed) physical injury and trauma Category: Surgical Plan: Doing well continue per root protocol Coding Level of Care Code Global (78608) Diagnoses S/P ACL reconstruction Z98.890 Acute medial meniscus tear of right knee S83.241A S/P repair of lateral meniscus root tear of right knee Z98.890; Z87.828
== END 2024-09-11 15:04 | disposition home or self-care (01) ==
LOC: HO.HOS 14:32
PROVIDERS: Visit Provider Orthopaedic Surgery
DX: Z98.890 Other specified postprocedural states (principal); S83.241A Other tear of medial meniscus, current injury, right knee, initial encounter; Z87.828 Personal history of other (healed) physical injury and trauma
CPT/HCPCS: 99024

== ENCOUNTER → 2024-09-11 14:32 | Outpatient (BNVA) | payer OTHER, SELFPAY | PROVIDERS: Visit Provider Orthopaedic Surgery ==

== ENCOUNTER 2024-10-23 13:35 | Outpatient (REF) | payer OTHER, SELFPAY ==
--- NOTE | ~2024-10-23 | XR_ITS ---
EXAMINATION: XR KNEE 1-2 VIEWS RIGHT HISTORY: Z98.890 - Other specified postprocedural states COMPARISON: Comparison is made with the prior examination dated 03/23/2024. FINDINGS: AP and lateral views of the right knee are submitted. There has been revision of previously seen ACL repair. There is no fracture or dislocation. The joint spaces are preserved. There is a trace suprapatellar joint effusion. XR/XR knee RT 2V IMPRESSION: Trace joint effusion. Status post revision of prior ACL repair. No evidence of fracture. Electronically signed by: Torres Bojorquez MD 10/23/2024 03:16 PM EDT
--- OUTSIDE RECORDS SUMMARY | 2024-10-23 15:04 | XMS_ITS | Referral Summary ---
Author Organization [facility] Address [address] [place] [address] Care Team Providers Care Wood Milling Machine Tender Name Role Phone Patient, Has No [...] Plan of Treatment Not on file Insurance [employer] Care Teams Wood Milling Machine Tender Relationship Specialty Start Date End Date Patient, Has No Pcp Or Ref DO NOT EDIT THIS RECORD VIA PROVIDER ON THE FLY PCP - General Aquarium Specialist 04/06/24
--- OUTSIDE RECORDS SUMMARY | 2024-10-23 15:04 | XMS_ITS | Clinical Summary ---
Author Organization [facility] Address [address] [place] [address] Care Team Providers Care Splitter Machine Name Role Phone Elia Morocho MD Primary Care Provider [phone] Allergies No known active allergies Medications acetaminophen (TYLENOL) 500 mg tablet Take 2 tablets (1,000 mg total) by mouth every 8 (eight) hours. 03/28/20 24 Active amLODIPine (NORVASC) 5 mg tablet Take 1 tablet (5 mg total) by mouth 1 (one) time each day. 08/13/19 24 Active chlorthalidone (HYGROTON) 25 mg tablet Take 1 tablet (25 mg total) by mouth 1 (one) time each day. 10/18/19 24 Active hydrOXYzine HCL (ATARAX) 25 mg tablet Take 1 tablet (25 mg total) by mouth 3 (three) times a day if needed. 03/08/20 24 Active prazosin (MINIPRESS) 1 mg capsule TAKE 1 CAPSULE BY MOUTH EVERY NIGHT AT BEDTIME. 03/03/20 24 Active traMADoL (ULTRAM) 50 mg tablet Take 1 Tablet by mouth every 12 hours as needed (right lower extremity pain). 03/28/20 24 Active traZODone (DESYREL) 50 mg tablet Take 1 tablet (50 mg total) by mouth at bedtime. 03/03/20 24 Active varenicline (CHANTIX) 0.5 mg tablet Take one tablet by mouth daily for 3 days, then increase to 1 tablet by mouth twice daily for 4 days, then change to 1 mg tablets. 03/21/20 24 Active naproxen (NAPROSYN) 500 mg tablet Take 1 tablet (500 mg total) by mouth 2 (two) times a day if needed (with full meal for joint pain). 20 tablet 10/20/19 25 Active naproxen (NAPROSYN) 500 mg tablet Take 1 Tablet by mouth every 12 hours. (with FULL meal) 03/28/20 24 025 Discontinued Active Problems Problem Noted Date Diagnosed Date Post-nasal drip 04/25/2020 Hyperlipidemia 02/12/2020 History of alcohol dependence ([facility] V24, [facility] V28) 04/17/2013 Overview (10/19/2024): February 2024: Naltrexone & phenobarbital for withdrawal management Grief reaction 11/16/2012 Hypertension 11/16/2012 Sacral pain 07/28/2012 Immunizations Name Administration Dates Next Due Influenza trivalent, 0.5mL, preservative free (Fluarix; FluLaval; Fluzone) ages 6mo and older (Afluria) 3 years and older 03/08/2024 Influenza, Unspecified 02/26/2022,04/22/2021,06/2011 Moderna SARS-CoV-2 COVID-19, mRNA, LNP-S, preservative free 07/08/2021 Pfizer (ages 12 & older) Bivalent, COVID-19 /01/2022 Tetanus Toxoid, Unspecified 12/02/2013 Surgical History Surgery Date Site/Laterality Comments OTHER SURGICAL HISTORY PROCEDURE: DME ACL ORTHOSIS EYE SURGERY PROCEDURE: HISTORICAL EYE SURGERY LIPOMA RESECTION 2016 PROCEDURE: SKIN TISSUE EXCISION(LIPOMA) Medical History Medical History Date Comments Hypertension 11/16/2012 DX:Hypertension Family History Medical History Relation Name Comments Other: ca bladder Aunt Other: seasonal allergies Brother Heart attack Maternal Grandfather Stroke Maternal Grandfather Other: seasonal allergies Mother Breast cancer Neg Hx Colon cancer Neg Hx Ovarian cancer Neg Hx Uterine cancer Neg Hx Relation Name Status Comments Aunt Brother Alive healthy Father (Age 56) parasite i nfection travel in [facility]; hypertension Maternal Grandfather Maternal Grandmother Mother Alive healthy Paternal Grandfather Paternal Grandmother Social History Tobacco Use Types Packs/Day Years Used Date Smoking Tobacco: Every Day Cigarettes Last attempted to quit: 07/22/2022 Smokeless Tobacco: Never Alcohol Use Standard Drinks/Week Comments Yes 0 (1 standard drink = 0.6 oz pur e alcohol) Comments Unknown Sex and Gender Information Value Date Recorded Sex Assigned at Not on file Legal Sex Female 10:02 AM EST Gender Identity Not on file Sexual Orientation Not on file Obstetrics History Last Filed Vital Signs Vital Sign Reading Time Taken Comments Blood Pressure 136/85 03/28/2024 3:01 PM EDT Pulse 83 03/28/2024 3:01 PM EDT Temperature - - Respiratory Rate - - Oxygen Saturation - - Inhaled Oxygen Concentration - - Weight 63.4 kg (139 lb 12.8 oz) 03/08/2024 4:36 PM EDT Height 161.3 cm (5' 3.5 ) 03/28/2024 3:01 PM EDT Body Mass Index 24.38 03/08/2024 4:36 PM EDT Plan of Treatment Upcoming Encounters Date Type Department Care Team (Late st Contact Info) Description 12/05/2024 2:30 PM EDT Office Visit Adult Medicine [address] [phone] Kailey Rizvi PA [address] [place] [id number] Health Maintenance Due Date Last Done Comments Breast Cancer Screening 1983 DTaP,Tdap,and Td Vaccines (1 - Tdap) 2002 Hepatitis B Vaccines (1 of 3 - 19+ 3-dose series) 2002 Pneumococcal Vaccine: Pediatrics (0 to 5 Years) and At-Risk Patients (6 to 64 Years) (1 of 2 - PCV) 2002 Social Influencers of Health Screening 05/30/2022 Cervical Cancer Screening: HPV 11/22/2023 11/21/2018 Hypertension/CHF/CAD Annual BMP Blood Test 12/09/2023 12/08/2022 COVID-19 Vaccine ( season) 2024 02/26/2022, 07/08/2021, 07/03/2020, Additional history exists Depression Screening 08/12/2024 08/12/2023 Cholesterol Screening (Lipid Panel) 12/09/2027 12/08/2022 HIV Screening Completed 01/03/2018 Hepatitis C Screening Completed 01/03/2018 Influenza Vaccine Completed 03/08/2024, , 04/22/2021, Additional history exists HIB Vaccines Aged Out No longer eligi ble based on patient's age to complete this topic HPV Vaccines Aged Out No longer eligi ble based on patient's age to complete this topic Hepatitis A Vaccines Aged Out No long er eligible based on patient's age to complete this topic IPV Vaccines Aged Out No longer eligi ble based on patient's age to complete this topic MMR Vaccines Aged Out No longer eligi ble based on patient's age to complete this topic Meningococcal ACWY Vaccine Aged Out N o longer eligible based on patient's age to complete this topic Meningococcal B Vaccine Aged Out No l onger eligible based on patient's age to complete this topic RSV Immunization Patients Under 20 months Aged Out No longer eligible based on patient's age to complete this topic Varicella Vaccines Aged Out No longer eligible based on patient's age to complete this topic Procedures Procedure Name Priority Date/Time Associated Diagnosis Comments ANNUAL BMP BLOOD TEST Routine 12/08/2022 LIPID PANEL Routine 12/08/2022 HPV Routine 11/21/2018 HEPATITIS C SCREENING Routine 01/03/2018 HIV SCREENING Routine 01/03/2018 from Last 3 Months or Most Recently Relevant to Health Maintenance Results * Annual BMP Blood Test (12/08/2022) Annual BMP Blood Test abstracted Historical Provider HEALTH MAINTENANCE Final Result * (ABNORMAL) Lipid panel (12/08/2022) LDL/HDL Ratio 3 0 - 4 Triglycerides 177(A) 0 - 150 mg/dL Cholesterol 209(A) 0 - 200 mg/dL HDL 83 >=40 mg/dL LDL Cholesterol 91 0 - 100 mg/dL Blood Venous blood specimen / Unknown Historical Provider LAB BLOOD ORDERABLES Edith l Result * Cervical Cancer Screening: HPV (11/21/2018) Cervical Cancer Screening: HPV negative, abstracted Historical Provider HEALTH MAINTENANCE Final Result * HIV Screening (01/03/2018) Pathologist [facility] HIV Screening abstracted Historical Provider HEALTH MAINTENANCE Final Result * Hepatitis C Screening (01/03/2018) Pathologist [facility] Hepatitis C Screening abstracted Historical Provider HEALTH MAINTENANCE Final Result from Last 3 Months or Most Recently Relevant to Health Maintenance Insurance [employer] [facility] Care Teams Splitter Machine Relationship Specialty Start Date End Date Elia Morocho MD PCP - General Internal Medicine 05/01/21
--- OUTSIDE RECORDS SUMMARY | 2024-10-23 15:04 | XMS_ITS | Clinical Summary ---
Author Organization [facility] Address [address] [place] [address] Care Team Providers Care Driveway Sealer Name Role Phone Patient, Has No Pcp [...] Vaccine ( - 2023-2 5 season) 2024 Alcohol/Substance Use Screening 06/21/2024 Influenza Vaccine (Season Ended) 2025 RSV Vaccine (60+ years old a nd patients) (1 - 1-dose 75+ series) 2058 Pneumococcal Vaccine: Pediat winsome (0-5 Years) and At-Risk Patients (6-50 Years) Aged Out No longer eligible b ased on patient's age to complete this topic Insurance [employer] Care Teams Driveway Sealer Relationship Specialty Start Date End Date Patient, Has No Pcp Or Ref DO NOT EDIT THIS RECORD VIA PROVIDER ON THE FLY PCP - General Television News Reporter 04/06/24
== END 2024-10-23 13:36 | disposition home or self-care (01) ==
LOC: HO.HOSX 13:35
PROVIDERS: Visit Provider Orthopaedic Surgery
DX: Z98.890 Other specified postprocedural states (principal)
CPT/HCPCS: 73560

== ENCOUNTER 2024-10-23 14:37 | Outpatient (AMB) | payer OTHER, SELFPAY ==
--- NOTE | 2024-10-23 14:45 | MHC.OFFVIS ---
Vital Signs 10/23/24 14:46 Height 5 ft 4 in Weight 140 lb BMI 24.0 Intake Visit Reasons: PO RT knee ACL repair 08/02/24 NE Intake Note: Flora is a 39 year old female who presents today for a post op appointment about 3 months s/p right knee ACL repair 08/02/24 NE. She has returned to sedentary work. States she continues to have pain daily especially at night time and on the weekends. Allergies No Known Allergies Allergy (Verified 10/23/24 14:47) HPI HPI PO RT knee ACL repair 08/02/24 NE: Details: Three months status post ACL repair with a root repair laterally and a medial body repair. She is doing well with mostly anterior knee pain. She is attending physical therapy and her motion is good. Her quad is weak as is expected. [facility] Surgical History S/P reconstruction of ACL of right knee using bone-patellar tendon-bone autograft Social History Are you a primary home care liaison to a significant other at home: No Do you presently have visiting nurse or other home services: No Patient Tobacco Use Status: Current everyday Tobacco user Tobacco use type: Cigarette Cigarettes Per Day: 5 Current occupation: [employer] Physical Exam Vital Signs: BMI result Body Mass Index 24.0 Extrem Other: Portals clean dry and intact. Stable Becky's. Full range of motion. Tenderness over the tibial ACL tunnel incision. Results Reviewed Results Reviewed: I personally reviewed relevant radiographs. Trace joint effusion with evidence of prior ACL reconstruction with no complications. Assessment & Plan Assessment & Plan (1) S/P ACL reconstruction: Code(s): Z98.890 - Other specified postprocedural states Category: Surgical Plan: Status post ACL reconstruction doing well. Continue gradual and slow therapy. I have reviewed the importance of therapy in the importance of strengthening and cautious and slow progression. I recommend continue brace wear when out of the house. (2) Acute medial meniscus tear of right knee: Code(s): S83.241A - Other tear of medial meniscus, current injury, right knee, initial encounter Category: Medical Plan: Follow up 3 months (3) S/P repair of lateral meniscus root tear of right knee: Code(s): Z98.890 - Other specified postprocedural states; Z87.828 - Personal history of other (healed) physical injury and trauma Category: Surgical Plan: Follow up 3 months Orders: Orders XR knee RT 2V 10/23/24 Z98.890 - Other specified postprocedural states Coding Level of Care Code Global (69227) Diagnoses S/P ACL reconstruction Z98.890 Acute medial meniscus tear of right knee S83.241A S/P repair of lateral meniscus root tear of right knee Z98.890; Z87.828
[2024-10-23 14:46] VITALS: BMI 24.0
--- OUTSIDE RECORDS SUMMARY | 2024-10-23 16:12 | XMS_ITS | Clinical Summary ---
Author Organization [facility] Address [address] [place] [address] Care Team Providers Care Hazardous Waste Remover Name Role Phone Patient, Has No Pcp [...] [employer] Care Teams Hazardous Waste Remover Relationship Specialty Start Date End Date Patient, Has No Pcp Or Ref DO NOT EDIT THIS RECORD VIA PROVIDER ON THE FLY PCP - General Mechanical Car Checker 04/06/24
--- OUTSIDE RECORDS SUMMARY | 2024-10-23 16:12 | XMS_ITS | Referral Summary ---
Author Organization [facility] Address [address] [place] [address] Care Team Providers Care Outside Maintenance Worker Name Role Phone Patient, Has [...] Plan of Treatment Not on file Insurance [employer] ADMINISTRAT[employer] Care Teams Outside Maintenance Worker Relationship Specialty Start Date End Date Patient, Has No Pcp Or Ref DO NOT EDIT THIS RECORD VIA PROVIDER ON THE FLY PCP - General Screen Machine Operator 04/06/24
--- OUTSIDE RECORDS SUMMARY | 2024-10-23 16:12 | XMS_ITS | Clinical Summary ---
Author Organization [facility] Address [address] [place] [address] Care Team Providers Care Spot Machine Operator Name Role Phone Elia Morocho MD Primary Care Provider [phone] Allergies No known active allergies Medications acetaminophen [...] 04/25/2020 Hyperlipidemia 02/12/2020 History of alcohol dependence ([facility] V24, [facility] V28) 04/17/2013 Overview (10/19/2024): February 2024: Naltrexone [...] (Age 54) parasite i nfection travel in [facility]; hypertension Maternal Grandfather Maternal Grandmother Mother Alive [...] 2:30 PM EDT Office Visit Adult Medicine [address] [address] Kailey Rizvi PA [address] [place] [phone] Health Maintenance Due Date Last Done Comments [...] Final Result * HIV Screening (01/03/2018) Pathologist [facility] HIV Screening abstracted Historical Provider HEALTH MAINTENANCE Final Result * Hepatitis C Screening (01/03/2018) Pathologist [facility] Hepatitis C Screening abstracted Historical Provider HEALTH MAINTENANCE Final Result from Last 3 Months or Most Recently Relevant to Health Maintenance Insurance [place] [employer] [facility] [place] [phone] Care Teams Spot Machine Operator Relationship Specialty Start Date End Date Elia Morocho MD PCP - General Internal Medicine 05/01/21
== END 2024-10-23 15:03 | disposition home or self-care (01) ==
LOC: HO.HOS 14:38
PROVIDERS: Visit Provider Orthopaedic Surgery
DX: Z98.890 Other specified postprocedural states (principal); S83.241A Other tear of medial meniscus, current injury, right knee, initial encounter; Z87.828 Personal history of other (healed) physical injury and trauma
CPT/HCPCS: 99024

== ENCOUNTER → 2024-10-23 14:39 | Outpatient (BNV) | payer OTHER, SELFPAY | PROVIDERS: Visit Provider Radiology Diagnostic Radiology | DX: M25.474 Effusion, right foot (principal) | CPT/HCPCS: 73560 ==

== ENCOUNTER 2024-12-04 13:01 | Outpatient (AMB) | payer OTHER, SELFPAY ==
[2024-12-04 13:04] VITALS: BMI 24.0
--- NOTE | 2024-12-04 13:04 | MHC.OFFVIS ---
Vital Signs 12/04/24 13:04 Height 5 ft 4 in Weight 140 lb BMI 24.0 Intake Visit Reasons: OV- RT knee ACL repair 08/02/24 NE Intake Note: Flora is a 39 year old female who presents today for a post op appointment about 4 months s/p right knee ACL repair 08/02/24 NE. She was instructed to continue use of brace while out of the house. Patient reports that her right knee is feeling better but notices pain with over use.Patient states that she has Physical Therapy twice a week and is seeing improvements. Allergies No Known Allergies Allergy (Verified 12/04/24 13:07) HPI HPI OV- RT knee ACL repair 08/02/24 NE: Details: Flora is a 39 year old female who presents today for a post op appointment about 4 months s/p right knee ACL repair 08/02/24 NE. She was instructed to continue use of brace while out of the house. Patient reports that her right knee is feeling better but notices pain with over use.Patient states that she has Physical Therapy twice a week and is seeing improvements. [facility] Surgical History S/P reconstruction of ACL of right knee using bone-patellar tendon-bone autograft Social History Are you a primary patient care nursing assistant to a significant other at home: No Do you presently have visiting nurse or other home services: No Patient Tobacco Use Status: Current everyday Tobacco user Tobacco use type: Cigarette Cigarettes Per Day: 5 Current occupation: [employer] Physical Exam Vital Signs: BMI result Body Mass Index 24.0 Extrem Other: Full range of motion with well-healed portals. Negative Bautista's and stable 1+ Becky's with a firm endpoint. She is walking normally. Her ipsilateral quad is diminished in size compared to the contralateral core demond but improved from prior. Assessment & Plan Assessment & Plan (1) S/P repair of lateral meniscus root tear of right knee: Code(s): Z98.890 - Other specified postprocedural states; Z87.828 - Personal history of other (healed) physical injury and trauma Category: Surgical Plan: Shallow is doing well status post ACL reconstruction as well as medial and lateral meniscus repairs. At the 4 month time point I recommend she continue in line gait training with no running. Leg strengthening and avoidance of cutting activities. She will follow up in 2 months. (2) S/P ACL reconstruction: Code(s): Z98.890 - Other specified postprocedural states Category: Surgical Plan She will follow up in 2 months Coding Level of Care Code Est Pt Level 3 (52979) Diagnoses S/P repair of lateral meniscus root tear of right knee Z98.890; Z87.828 S/P ACL reconstruction Z98.890
--- OUTSIDE RECORDS SUMMARY | 2024-12-04 14:25 | XMS_ITS | Referral Summary ---
Author Organization [facility] Address [address] [place] [address] Care Team Providers Care Sole Dyer Name Role Phone Patient, Has No Pcp [...] Plan of Treatment Not on file Insurance [employer] Care Teams Sole Dyer Relationship Specialty Start Date End Date Patient, Has No Pcp Or Ref DO NOT EDIT THIS RECORD VIA PROVIDER ON THE FLY PCP - General Photographic Platemaker 04/06/24
== END 2024-12-04 13:37 | disposition home or self-care (01) ==
LOC: HO.HOS 13:01
PROVIDERS: Visit Provider Orthopaedic Surgery
DX: Z47.89 Encounter for other orthopedic aftercare (principal); S83.511D Sprain of anterior cruciate ligament of right knee, subsequent encounter; Z87.828 Personal history of other (healed) physical injury and trauma
CPT/HCPCS: 99213

== ENCOUNTER → 2024-12-04 13:01 | Outpatient (BNVA) | payer OTHER, SELFPAY | PROVIDERS: Visit Provider Orthopaedic Surgery ==

== ENCOUNTER 2024-12-04 14:04 | Outpatient (RCR) | payer OTHER, SELFPAY ==
--- NOTE | 2025-01-12 14:26 | MHC.PT.DC ---
[facility] [place] Office [place] [facility] [place] [facility] [address] Joanna Smith [address] [phone] F: [phone] F: [phone] F: [phone] F: [phone] Physical Therapy Discharge Report Diagnosis: NEW TEAR OF Rt ACL -> S/P Rt ACL RECONSTRUCTION W ALLOGRAFT, REPAIR OF Rt LATERAL MENISCUS ROOT TEAR, ACUTE MEDIAL MENISCUS TEAR-> NWB Rt LE x 2 WKS, ROM 0*-90* W BRACE, ISOMETRIC QUAD SETS Date of Surgery: 08/02/2024 Date of Evaluation: 08/18/24 Date of Discharge: 01/12/25 Treatments to Date: 16 Cancellations to Date: 9 No Shows to Date: 1 Discharge Status: Improved Function Independent with HEP Patient Elected to Stop Discharge Summary: JOSLYN'S LAST ATTENDED PT APPT WAS 12/04/24 AND AT THAT TIME SHE DISPLAYED DECENT TECHN W SLS Rt, AT LAST PT APPT HER LT KNEE AROM GOAL WAS MET, SHE WAS FATIGUED W ECCENTRIC STEP DOWNS, BENEFITTED FROM VERBAL CUES TO REDUCE GENU VALGUS BIASING- SHE HAD NOTED SHE [facility] AND UNCERTAIN TO RETURN DATE- SUGGECT ORTHO FOLLOW -UP AND PROCEED ACCORDINGLY W HER POST-OP COURSE. Electronically signed by: SHIRAZ CHRISTIANSEN.PT Please sign and return to therapist. Thank you for your referral.
== END 2025-01-12 14:26 | disposition home or self-care (01) ==
LOC: HO.PT 14:04
PROVIDERS: Visit Provider Physician Assistant
DX: S83.511D Sprain of anterior cruciate ligament of right knee, subsequent encounter (principal); X58.XXXD Exposure to other specified factors, subsequent encounter; Z87.828 Personal history of other (healed) physical injury and trauma; Z98.890 Other specified postprocedural states
CPT/HCPCS: 95992; 97110; 97112; 97140; 97162; 97530; 97535

== ENCOUNTER 2025-02-05 11:09 | Outpatient (REF) | payer OTHER, SELFPAY ==
--- OUTSIDE RECORDS SUMMARY | 2025-02-05 12:21 | XMS_ITS | Clinical Summary ---
Author Organization [facility] Address [address] [place] [phone] Phone Care Team Providers Care Tube Lancer Name Role Phone Pcp, Unknown Primary Care Provider Unavailabl e Allergies No known active allergies Medications meclizine (ANTIVERT) 25 mg tablet Take 1 tablet (25 mg total) by mouth 3 (three) times a day as needed for dizziness. 90 tablet 12/07/2023 Active Active Problems Problem Noted Date Diagnosed Date Alcohol withdrawal 12/05/2023 Assessment & Plan (12/06/2023 10:29 PM EDT): Patient has been binge drinking excessively at least over the past week and was found to be in alcohol withdrawal at [facility] detox facility. -she received about 14.5 mg/kg of phenobarbital -still having significant withdrawal another 3 mg/kg of phenobarbital ordered -Add adjunctive medications added including IV PPI, as needed ondansetron, as needed quetiapine as needed clonidine -gentle IVF with potassium -She does have evidence of alcoholic hepatitis with elevated transaminases which appear to be improving in the abstinence of alcohol -Replacing thiamine folate multivitamin -Social work consult - advised may not be ready for discharge today Tobacco dependence 12/05/2023 Assessment & Plan (12/05/2023 4:39 PM EDT): Patient smoked half pack per day. - cont nicotine replacement. Family History Medical History Relation Comments Alcohol use disorder Mother Relation Status Comments Mother Social History Tobacco Use Types Packs/Day Years Used Date Smoking Tobacco: Some Days Cigarettes Smokeless Tobacco: Never Tobacco Cessation:Ready to Q uit: Not Asked; Counseling Given: Not Answered Alcohol Use Standard Drinks/Week Comments Yes 0 (1 standard drink = 0.6 oz pur e alcohol) daily Education Answer Date Recorded Are you interested in more education? Not on damaso e 02/18/2023 Are you concerned about learning? Not on file 02/18/2023 No 02/18/2023 No 02/18/2023 Digital Access Answer Date Recorded No 02/18/2023 No 02/18/2023 Reliable internet access at home? Not on file 02/18/2023 Device with a working camera? Not on file Intimate Partner Violence Answer Date R ecorded Are you denied basic needs s uch as food, clothing, or medical care? No 12/05/2023 In the past 12 months have y ou been in a relationship with a person who hurts, threatens, or tries to control you? No 12/05/2023 Are you denied basic needs s uch as food, clothing, or medical care? No 12/05/2023 In the past 12 months have y ou been in a relationship with a person who hurts, threatens, or tries to control you? No 12/05/2023 Comments Unknown Sex and Gender Information Value Date Recorded Sex Assigned at Female 12/05/2023 1:15 AM EDT Legal Sex Female 9:18 PM EDT Gender Identity Female 12/05/2023 1:15 AM EDT Sexual Orientation Straight 12/05/2023 1: 15 AM EDT Last Filed Vital Signs Vital Sign Reading Time Taken Comments Blood Pressure 121/86 12/07/2023 8:00 AM EDT Pulse 73 12/07/2023 8:00 AM EDT Temperature 36.5 C (97.7 F) 12/07/2023 5:55 AM EDT Respiratory Rate 16 12/07/2023 8:00 AM EDT Oxygen Saturation 98% 12/07/2023 8:00 AM EDT Inhaled Oxygen Concentration - - Weight 64.1 kg (141 lb 5 oz) 12/05/2023 4:50 AM EDT Height 163.8 cm (5' 4.49 ) 12/05/2023 4:50 AM ED T Body Mass Index 23.89 12/05/2023 4:50 AM EDT Plan of Treatment Health Maintenance Due Date Last Done Comments Adult Td,Tdap Booster 1983 DEPRESSION SCREENING 1995 SMOKING Hx and SMOKELESS TOB ACCO SCREENING 02/23/1996 HEPATITIS C SCREENING 2001 HIV ONE-TIME SCREENING (18-6 5 YEARS) 2001 PNEUMOCOCCAL VACCINES (0-49 years) (1 of 2 - PCV) 2002 PAP SMEAR 11/21/2021 11/21/2018 MAMMOGRAM 2023 COVID-19 VACCINE (1 - 2023-2 5 season) 2024 HEPATITIS A VACCINES Aged Out No long er eligible based on patient's age to complete this topic HIB VACCINES Aged Out No longer eligi ble based on patient's age to complete this topic MENINGOCOCCAL VACCINES (ACWY) Aged Out No longer eligible based on patient's age to complete this topic MENINGOCOCCAL VACCINES (B) Aged Out N o longer eligible based on patient's age to complete this topic Medical Devices Not on file Insurance MEDICARE [facility] BENEFITS ADMINISTRATORS MEDICARE A [facility] ADMIN[facility] MEDICARE A MEDICARE A MEDICARE A [employer] MEDICARE A MEDICARE A [facility] [employer] MEDICARE A [facility] [employer] MEDICARE A [facility] [employer]MIN[employer] Advance Directives For more information, please contact: [phone] (9AM - 5PM [facility], Wednesday-Wednesday) * Full Code (Latest Code Status on File) Date Activated Date Inactivated Comments 12/05/2023 4:57 AM Question Answer Comments Code Status Confirmed With: Patient Code Status Communicated To: Inpatient Attending Care Teams Tube Lancer Relationship Specialty Start Date End Date Pcp, Unknown PCP - General 02/18/23 Additional Source Comments The information contained in this document represents components of the legal health record. It is not the complete legal health record.[facility]
--- OUTSIDE RECORDS SUMMARY | 2025-02-05 12:21 | XMS_ITS | Clinical Summary ---
Author Organization [facility] Address [address] [place] [address] Care Team Providers Care Flotation Tender Helper Name Role Phone Patient, Has No Pcp [...] 2024 Alcohol/Substance Use Screening 06/21/2024 Influenza Vaccine (#1) 2025 RSV Vaccine (60+ years old a nd patients) (1 - 1-dose 75+ series) 2058 Pneumococcal Vaccine: Pediat winsome (0-5 Years) and At-Risk Patients (6-50 Years) Aged Out No longer eligible b ased on patient's age to complete this topic Insurance [employer] Care Teams Flotation Tender Helper Relationship Specialty Start Date End Date Patient, Has No Pcp Or Ref DO NOT EDIT THIS RECORD VIA PROVIDER ON THE FLY PCP - General Skull Chopper 04/06/24
== END 2025-02-05 11:10 | disposition home or self-care (01) ==
LOC: HO.HOSX 11:09
PROVIDERS: Visit Provider Orthopaedic Surgery
DX: Z13.89 Encounter for screening for other disorder (principal)